=== PATIENT | female | born 1975 ===

== ENCOUNTER 2019-09-24 11:57 | Outpatient (CLI) | payer OTHER, SELFPAY ==
[2019-09-27 09:00] LABS: COVID-19 RT-PCR Result Positive (NotDetected)
== END 2019-09-24 12:17 ==
PROVIDERS: Visit Provider Family Medicine
DX: Z11.59 Encounter for screening for other viral diseases (principal)
CPT/HCPCS: U0003

== ENCOUNTER 2019-10-07 08:12 | Outpatient (CLI) | payer OTHER, SELFPAY ==
[2019-10-08 15:51] LABS: COVID-19 RT-PCR UVMMC Result Positive (Negative)
== END 2019-10-07 08:32 ==
PROVIDERS: Visit Provider Family Medicine
DX: U07.1 COVID-19 (principal)
CPT/HCPCS: U0003

== ENCOUNTER 2019-10-08 08:41 | Outpatient (CLI) | payer OTHER, SELFPAY ==
[2019-10-09 14:16] LABS: COVID-19 RT-PCR UVMMC Result Positive (Negative)
== END 2019-10-08 09:01 ==
PROVIDERS: Visit Provider Family Medicine
DX: Z11.59 Encounter for screening for other viral diseases (principal)
CPT/HCPCS: U0003